=== PATIENT | male | born 1980 | race Caucasian/White ===

== ENCOUNTER 2019-02-18 12:33 | Emergency (ER) | payer OTHER ==
[~2019-02-18] VITALS: Ht 167.6 cm; Wt 81.6 kg
[2019-02-18 12:33] VITALS: BP 138/84
[2019-02-18] MEDS ORDERED: IBUP-1022 PO (13:10)
--- NOTE | 2019-02-18 13:21 | REP ---
LEFT FOURTH DIGIT: Four views of the left fourth digit performed. There is an avulsion fracture at the dorsal base of the distal phalanx which is slightly displaced. There is no other evidence of acute fracture or dislocation. Electronically Signed by Keon Duarte MD 02/18/2019 04:36 P
== END 2019-02-18 13:43 | disposition home or self-care (01) ==
LOC: M ED 12:33
DX: S62.635A Displaced fracture of distal phalanx of left ring finger, initial encounter for closed fracture (principal); Y93.61 Activity, american tackle football; Y99.8 Other external cause status; Y92.328 Other athletic field as the place of occurrence of the external cause; X58.XXXA Exposure to other specified factors, initial encounter